=== PATIENT | male | born 1955 | race Two or more races ===

== ENCOUNTER 2025-03-10 16:58 | Emergency (ER) | payer MEDICARE ==
[~2025-03-10] VITALS: Ht 180.3 cm; Wt 88.5 kg
[2025-03-10 19:01] VITALS: BP 138/78; TEMP 97.9; O2SAT 98
== END 2025-03-10 19:06 | disposition home or self-care (01) ==
LOC: ER 17:41
DX: S09.90XA Unspecified injury of head, initial encounter (principal); M54.2 Cervicalgia; E78.5 Hyperlipidemia, unspecified; W19.XXXA Unspecified fall, initial encounter; Y93.89 Activity, other specified; Y92.89 Other specified places as the place of occurrence of the external cause; Y99.8 Other external cause status
CPT/HCPCS: 70450-TC; 72125-TC